=== PATIENT | female | born 1995 | race Caucasian/White ===

== ENCOUNTER → 2016-11-24 | Outpatient (CLI) | payer BC, OTHER ==
[~2016-11-24] MED LIST: CLRUNK
[2016-11-24 15:29] LABS: URINE APPEARANCE CLEAR (CLEAR); URINE BILIRUBIN NEG (NEG); URINE COLOR YELLOW; URINE EPITHELIAL CELL AUTO >30 /lpf (0-5); URINE NITRITE NEG (NEG); URINE SPECIFIC GRAVITY 1.027 (1.000-1.030); UROBILINOGEN NEG (NEG)
[2016-11-24 15:37] LABS: MANUAL MICROSCOPIC REQUIRED? NO; REVIEW REQ? NO
== END | disposition home or self-care (01) ==
LOC: C.LABSPEC 13:18
PROVIDERS: ATTEND Obstetrics & Gynecology
DX: Z34.01 Encounter for supervision of normal first pregnancy, first trimester (principal)

== ENCOUNTER → 2017-02-02 | Outpatient (CLI) | payer BC ==
[~2017-02-02] MED LIST changes: +MTR600X PO; +OXYC-57 PO; +PRENTAB26 PO
[2017-02-02 11:25] LABS: GTGD 50 Grams
== END | disposition home or self-care (01) ==
LOC: C.LAB1850 08:51
PROVIDERS: ATTEND Obstetrics & Gynecology
DX: Z34.01 Encounter for supervision of normal first pregnancy, first trimester (principal)

== ENCOUNTER → 2017-04-27 | Outpatient (CLI) | payer BC ==
[~2017-04-27] MED LIST changes: -MTR600X PO; -OXYC-57 PO; -PRENTAB26 PO
[2017-04-27 10:47] LABS: URINE APPEARANCE CLEAR (CLEAR); URINE BILIRUBIN NEG (NEG); URINE COLOR YELLOW; URINE EPITHELIAL CELL AUTO >30 /lpf (0-5); URINE NITRITE NEG (NEG); URINE PH 6.5 (4.5-7.5); URINE SPECIFIC GRAVITY 1.019 (1.000-1.030); UROBILINOGEN NEG (NEG)
[2017-04-27 10:48] LABS: MANUAL MICROSCOPIC REQUIRED? NO; REVIEW REQ? NO
[2017-04-27 11:57] LABS: HEMATOCRIT 36.2 % (37-47)
[2017-04-27 12:40] LABS: GTGD 50 Grams
== END | disposition home or self-care (01) ==
LOC: C.LAB1850 09:35
PROVIDERS: ATTEND Obstetrics & Gynecology
DX: Z34.03 Encounter for supervision of normal first pregnancy, third trimester (principal)

== ENCOUNTER → 2017-06-22 | Outpatient (CLI) | payer BC | END | disposition home or self-care (01) | LOC: C.LABSPEC 11:01 | PROVIDERS: ATTEND Obstetrics & Gynecology | DX: Z34.03 Encounter for supervision of normal first pregnancy, third trimester (principal) ==

== ENCOUNTER 2017-07-06 23:06 | Outpatient (CLI) | payer BC ==
[~2017-07-06] VITALS: Ht 165.1 cm; Wt 90.3 kg
[2017-07-06 23:45] VITALS: Ht 165.1 cm; Wt 90.3 kg
[2017-07-06] MEDS ORDERED: PRENTAB26 PO (23:45)
--- NOTE | 2017-07-12 14:28 | EDITING REQUIRED CODING QUERY ---
DIAGNOSIS NEEDED To promote full compliance with coding requirements relating to patient care, physician participation is requested in all cases of machine heel seat laster uncertainty. Please assist us with the question(s) below: Coding Question: The patient received care in labor and delivery on 07/06/17 as noted within the record. Please document the diagnosis that is being addressed by the medication/treatment. Provider Response: DIAGNOSIS: Check PROM WEEKS OF GESTATION: 38 Thank you for your assistance, Kelsi Muir - Sales Project Engineer
[2017-07-21] MEDS ORDERED: OXYC-57 PO (08:26)
[2017-07-21] MEDS ORDERED: MTR600X PO (08:26)
== END 2017-07-07 00:15 | disposition home or self-care (01) ==
LOC: C.LD 23:06 → C.OPB 23:06
PROVIDERS: ATTEND Obstetrics & Gynecology
DX: Z34.03 Encounter for supervision of normal first pregnancy, third trimester (principal); Z3A.38 38 weeks gestation of pregnancy

== ENCOUNTER → 2017-10-30 | Outpatient (CLI) | payer BC ==
[~2017-10-30] MED LIST changes: -CLRUNK; +MTR600X PO; +OXYC-57 PO; +PRENTAB26 PO
[2017-10-30 09:41] LABS: HEMATOCRIT 41.9 % (37-47); MEAN CELL VOLUME 89.9 fL (80-100); MEAN CORPUSCULAR HGB CONC 33.4 g/dl (32-36); MEAN PLATELET VOLUME 9.7 fL (7.4-10.4); PLATELET COUNT 269 K/uL (130-400); RED CELL DISTRIBUTION WIDTH SD 42.1 fL (36.4-46.3); WHITE BLOOD COUNT 7.14 K/uL (4.8-10.8)
== END ==
LOC: C.LAB1850 07:43
PROVIDERS: ATTEND Nurse Practitioner Family
DX: R51 Headache (principal)

== ENCOUNTER 2020-02-11 02:26 | Inpatient (IN) ==
[2020-02-11] MEDS ORDERED: LACTATED RINGER'S 1,000 ML IV SCH ×2 (03:15→08:31)
--- NOTE | 2020-02-11 05:28 | History & Physical Report ---
Date of Service February 11, 2020 Assessment & Plan (1) Previous delivery affecting , antepartum: We have observed some slight change in cervical dye location and her several hour observation here additionally the patient has become increasingly uncomfortable with contractions despite fluid hydration she is 38 weeks at this stage I think she is entering into labor and does not wish to thus will make arrangements for section Repeat section. The patient was counseled to the nature of the procedure including alternatives such as labor. Risks were discussed including bleeding infection injury to bowel bladder ureter vessels and even baby. The risks of internal organ injury were discussed as being higher with prior sections. Deep Vein Thrombosis, pulmonary embolus and breakdown of the incision discussed. Deep vein thrombosis pulmonary embolus hernia and failure of the incision to heal were discussed Patient verbalized understanding of this and was given ample time to ask questions History of Present Illness Primary Care Provider: Samreen Sanchez 38 weeks who had planned a repeat section after 1 prior C- section presents initially emile irregular now emile every 2 to 3 minutes with increasing intensity cervix is changed from 3 to close to 4 cm and she is having some bleeding patient does not wish to has otherwise been uncomplicated Allergies Allergy/AdvReac Type Severity Reaction Status Date / Time minocycline Allergy 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 gluten Allergy Unknown gi issues Verified 02/11/20 02:39 Home Medications Home Medications Medication Instructions Recorded Confirmed Type doxylamine succinate 25 mg tablet 25 mg PO Q6H PRN 07/15/19 02/11/20 History prenat.vits,brenna,[id number] 1 tab PO DAILY 07/15/19 02/11/20 History aspirin 81 mg tablet,delayed 81 mg PO DAILY 09/17/19 02/11/20 History release cetirizine [Zyrtec] 10 mg PO DAILY 01/24/20 02/11/20 History Patient History Medical History Endometriosis malpresentation (Resolved) Gestational hypertension w/o significant proteinuria in 3rd trimester (Resolved) Hx of varicella Ovarian cyst (Resolved) Ovarian cyst Pneumonia (Resolved) Post-term , 40-42 weeks of gestation (Resolved) Surgical History H/O breast augmentation (Resolved) 2012 H/O section 07/2017 [facility]- Breech H/O rhinoplasty [place] teeth removed Family History Mother History of ovarian cystectomy H/O endometritis Grandmother (Paternal) No problems noted. Grandmother (Maternal) Heart disease Hypertension Other Cancer Cholecystitis Diabetes Dyslipidemia Seizures Social History (Updated 07/15/19 @ 09:11 by Joan Queen) Preferred Language: Turkish Communication Ability: Effective Manager Sharepoint Required: No Beliefs That Will Affect Care: None marital status: marital status details: Colton Horn (29) [phone] Current Living Situation: Spouse Current Living Situation Comment: Lives with and daughter current occupational status: employed current occupation: [employer] Feels Safe at Home: Yes Safety Concerns: Feels Safe At This Time Smoking Status: Never smoker Hx Alcohol Use: No Hx Substance Use: No Physical Exam Constitutional: WD/WN, vitals as above Respiratory: normal respiratory effort, lungs clear to auscultation Cardiovascular: RRR, no murmur, no edema Genitourinary: Manual OB Exam: + cervical dilation 4 cm, + cervical effacement 50% and + station -2 OB Exam Monitor Tracing: + external FHT monitor used Results & Data Vital Signs (Past 12 Hours) Vital Signs Temp Pulse Resp BP 02/11/20 04:30 82 133/78 02/11/20 02:41 97.7 F 18 02/11/20 02:35 97.7 F 110 H 18 137/83 Coding Level of Care Code None Diagnoses Previous delivery affecting , antepartum O34.219
[2020-02-11 05:43] LABS: Basophils # (auto) 0.02 K/uL (0-0.2); Basophils % (auto) 0.2 %; Eosinophils # (auto) 0.05 K/uL (0-0.5); Eosinophils % (auto) 0.5 %; Hematocrit (blood only) 40.1 % (37-47); Hemoglobin 13.9 g/dL (12.0-16.0); Immature Granulocytes # (auto) 0.03 K/uL (0.00-0.02); Immature Granulocytes % (auto) 0.3 %; Lymphocytes # (auto) 2.76 K/uL (1.2-3.4); Lymphocytes % (auto) 25.1 %; Mean Corpuscular Hemoglobin 31.5 pg (25-34); Mean Corpuscular Volume 90.9 fL (80-100); Mean Platelet Volume 9.5 fL (7.4-10.4); Monocytes # (auto) 0.68 K/uL (0.11-0.59); Monocytes % (auto) 6.2 %; Neutrophils # (auto) 7.46 K/uL (1.4-6.5); Neutrophils % (auto) 67.7 %; Platelet Count 233 K/uL (130-400); RDW Coefficient of Variation 12.9 % (11.5-14.5); RDW Standard Deviation 42.8 fL (36.4-46.3); Red Blood Count 4.41 M/uL (4.2-5.4)
[2020-02-11 05:45] LABS: Mean Corpuscular Hgb Conc 34.7 g/dL (32-36)
--- NOTE | 2020-02-11 05:53 | Anesthesiology Consultation ---
Date of Service February 11, 2020 Assessment & Plan ASA ASA2E Proposed Anesthesia Anesthesia Type: MAC Spinal History Surgery Operation Date: 02/11/20 05:20 Proposed Procedures p Section in LD - Alvin. 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 Allergy Unknown gi issues Verified 02/11/20 02:39 Medications Home Medications Medication Instructions Recorded Confirmed Last Taken doxylamine succinate 25 mg tablet 25 mg PO Q6H PRN 07/15/19 02/11/20 02/10/20 23:30 prenat.vits,brenna,[id number] 1 tab PO DAILY 07/15/19 02/11/20 02/10/20 23:30 aspirin 81 mg tablet,delayed 81 mg PO DAILY 09/17/19 02/11/20 02/10/20 23:30 release cetirizine [Zyrtec] 10 mg PO DAILY 01/24/20 02/11/20 02/10/20 23:30 Active Medications Generic Name Dose Route Start Last Admin Trade Name Freq PRN Reason Stop Dose Admin Lactated Ringer's 1,000 mls @ 500 mls/hr 02/11/20 03:15 02/11/20 03:23 Lr IV 03/12/20 03:14 500 mls/hr .Q2H PABLO Administration Past Medical History Medical History Endometriosis malpresentation (Resolved) Gestational hypertension w/o significant proteinuria in 3rd trimester (Resolved) Hx of varicella Ovarian cyst (Resolved) Ovarian cyst Pneumonia (Resolved) Post-term , 40-42 weeks of gestation (Resolved) Past Family History Family History Mother History of ovarian cystectomy H/O endometritis Grandmother (Paternal) No problems noted. Grandmother (Maternal) Heart disease Hypertension Other Cancer Cholecystitis Diabetes Dyslipidemia Seizures Past Surgical History Surgical History H/O breast augmentation (Resolved) 2012 H/O section 07/2017 [facility]- Breech H/O rhinoplasty [place] teeth removed Social History Smoking Status: Never smoker Hx Alcohol Use: No Hx Substance Use: No Physical Exam Vital Signs Last Vital Signs Temp 36.5 C 02/11/20 02:41 Pulse 82 02/11/20 04:30 Resp 18 02/11/20 02:41 BP 133/78 02/11/20 04:30 Testing Laboratory Results 02/11/20 05:30
--- NOTE | 2020-02-11 05:54 | Anesthesiology Consultation ---
Date of Service February 11, 2020 Assessment & Plan Chart Review Chart Review: Acceptable Risk for Surgery Consults Requested none History Surgery Operation Date: 02/11/20 05:20 Proposed Procedures p Section in LD - Alvin. 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 Allergy Unknown gi issues Verified 02/11/20 02:39 Medications Home Medications Medication Instructions Recorded Confirmed Last Taken doxylamine succinate 25 mg tablet 25 mg PO Q6H PRN 07/15/19 02/11/20 02/10/20 23:30 prenat.vits,brenna,gnf-uzsl-[id number] 1 tab PO DAILY 07/15/19 02/11/20 02/10/20 23:30 aspirin 81 mg tablet,delayed 81 mg PO DAILY 09/17/19 02/11/20 02/10/20 23:30 release cetirizine [Zyrtec] 10 mg PO DAILY 01/24/20 02/11/20 02/10/20 23:30 Active Medications Generic Name Dose Route Start Last Admin Trade Name Freq PRN Reason Stop Dose Admin Lactated Ringer's 1,000 mls @ 500 mls/hr 02/11/20 03:15 02/11/20 03:23 Lr IV 03/12/20 03:14 500 mls/hr .Q2H PABLO Administration Past Medical History Medical History Endometriosis malpresentation (Resolved) Gestational hypertension w/o significant proteinuria in 3rd trimester (Resolved) Hx of varicella Ovarian cyst (Resolved) Ovarian cyst Pneumonia (Resolved) Post-term , 40-42 weeks of gestation (Resolved) Past Family History Family History Mother History of ovarian cystectomy H/O endometritis Grandmother (Paternal) No problems noted. Grandmother (Maternal) Heart disease Hypertension Other Cancer Cholecystitis Diabetes Dyslipidemia Seizures Past Surgical History Surgical History H/O breast augmentation (Resolved) 2012 H/O section 07/2017 [facility]- Breech H/O rhinoplasty [place] teeth removed Social History Smoking Status: Never smoker Hx Alcohol Use: No Hx Substance Use: No Physical Exam Vital Signs Last Vital Signs Temp 36.5 C 02/11/20 02:41 Pulse 82 02/11/20 04:30 Resp 18 02/11/20 02:41 BP 133/78 02/11/20 04:30 Testing Laboratory Results 02/11/20 05:30
[2020-02-11] MEDS ORDERED: PROMETHAZINE HCL 25 MG in SODIUM CHLORIDE 0.9% 50 ML IV PRN ×2 (05:57→23:58)
[2020-02-11] MEDS ORDERED: NALOXONE HCL 1 MG in SODIUM CHLORIDE 0.9% 1000ML 1,000 ML IV PRN (05:57)
[2020-02-11] MEDS ORDERED: NALOXONE HCL 0.4 MG/1 ML VIAL/CARP IV PRN (05:57)
[2020-02-11] MEDS ORDERED: MoRPHine SULFATE PF 1 MG/ML 10 ML AMP/VIAL INT SPINAL ONE (05:57)
[2020-02-11] MEDS ORDERED: HYDROmorphone INJ 0.5 MG/0.5 ML SYR IV PRN (05:57)
[2020-02-11] MEDS ORDERED: ePHEDrine sulfate 50 MG/ML AMP IV PRN (05:57)
[2020-02-11] MEDS ORDERED: METOCLOPRAMIDE HCL 20 MG in SODIUM CHLORIDE 0.9% 50 ML IV PRN (05:57)
[2020-02-11] MEDS ORDERED: NALOXONE HCL 0.08 MG in SYRINGE 1.8 ML IV PRN (05:57)
[2020-02-11] MEDS ORDERED: NALBUPHINE HCL INJ 10 MG/ML AMP IV PRN (05:57)
[2020-02-11] MEDS ORDERED: ONDANSETRON INJ 2 MG/ML 2 ML VIAL IV PRN ×2 (05:57→23:58)
[2020-02-11] MEDS ORDERED: MEPERIDINE HCL 25 MG/ML CARP/VIAL IV PRN (05:57)
[2020-02-11] MEDS ORDERED: DiphenhydrAMINE HCL 50 MG/ML VIAL IV PRN ×3 (05:57→23:58)
[2020-02-11] MEDS ORDERED: MoRPHine SULFATE 2 MG/ML CARP IV PRN (05:57)
[2020-02-11] MEDS ORDERED: LACTATED RINGER'S 500 ML IV PRN (05:57)
[2020-02-11] MEDS ORDERED: CEFAZOLIN 2000MG 2,000 MG/15 ML SYR IV SCH (06:00)
[2020-02-11] MEDS ORDERED: SODIUM CHLORIDE 0.9% 1000ML 1,000 ML IV SCH (06:00)
[2020-02-11] MEDS ORDERED: CITRIC ACID/SODIUM CITRATE 15 ML UDC PO SCH (06:00)
[2020-02-11] MEDS ORDERED: DC INTRASPINAL MORPHINE SCH (06:00)
[2020-02-11] MEDS ORDERED: NO NARCOTICS OR SEDATIVES SCH (06:00)
[2020-02-11] MEDS ORDERED: MoRPHine SULFATE PF 1 MG/ML 10 ML AMP/VIAL ONE (06:09)
[2020-02-11] MEDS ORDERED: OXYTOCIN 10 UNITS/ML VIAL ONE ×3 (06:46→06:48)
--- NOTE | 2020-02-11 07:04 | Operative Report ---
PG Post Operative Report Pre & Post Diagnosis Previous C/S, labor Operation Date: 02/11/20 05:20 <No data on this case meets the specified criteria> I identified the patient and participated in the time-out.: Yes Procedure Operation Date: 02/11/20 05:20 Actual Procedures p Section in LD(Not Applicable) - Brennan Loya MD, FACOG Surgeon Brennan Loya MD, FACOG Manager [place] Dr. Gavin Estimated Blood Loss 600 Findings Consistent with Post-Op Diagnosis Specimens Cord gases, blood Description of Procedure Regional anesthetic was given by anesthesia patient had a Burt catheter inserted by nursing patient was prepped and draped in supine position with a leftward tilt preoperative antibiotics were given timeout performed Pickups with teeth were used to test the skin site and it was found adequate for incision scalpel used to make a Pfannenstiel incision cutting down through subcutaneous fat through the fascia fascia was then dissected laterally with the curved Gunderson's fascia was released superiorly and inferiorly from the rectus muscles with the curved Gunderson scissors, rectus muscle split peritoneal cavity entered in a superior location. Opening enlarged to allow exposure bladder retractor placed Metzenbaums used to dissect away the bladder flap low segment transverse incision made on the uterus with scalpel, note uterus was fairly thin. entry was done bluntly with the copper flotation operator's finger hysterotomy incision extended with the copper flotation operator's finger in the usual fashion baby was delivered then by flexion of the head and pressure from the housekeeping assistant on the abdomen mouth and then nares were suctioned baby was then delivered fully without difficulty without excessive force live vigorous cord clamped and cut cord gases obtained cord blood obtained placenta removed manually within ensured all placenta removed with a moist lap sponge uterus exteriorized IV Pitocin had been started by anesthesia and uterine tone improved. The uterus was closed in 2 layers first layer and 0 Monocryl running locked second layer 0 Monocryl nonlocked after generous irrigation and suction of the cul-de-sac and bladder flap regions hemostasis was excellent uterus was placed back in the peritoneal cavity and hemostasis was excellent rectus muscles were inspected and found to be dry fascia closed with 0 Vicryl subcutaneous fat closed with 3-0 Vicryl prior to this subcutaneous fat was irrigated skin closed with 4-0 subcuticular Monocryl incision Steri-Stripped urine was clear at the end of the procedure I attest to the content of the Intraoperative Record and any orders documented therein. Any exceptions are noted below.
[2020-02-11 07:42] LABS: Base Excess Cord Arterial Bld -2.2 mEq/L (-9-1.8); CO2 Cord Arterial Blood 49 mmHg (39.1-73.5); HCO3 Cord Arterial Blood 25 mmol/L (19.7-28.5); PO2 Cord Arterial Blood 25 mmHg (4.1-31.7); pH Cord Arterial Blood 7.32 (7.1-7.38)
[2020-02-11 07:46] LABS: Base Excess Cord Venous Blood -2.2 mEq/L (-7.7-1.9); Cord Venous Blood HCO3 24 mmol/L (18.4-26.8); Cord Venous Blood PCO2 47 mmHg (30.4-57.2); Cord Venous Blood PO2 24 mmHg (14.1-43.3); Cord Venous Blood pH 7.33 (7.20-7.44)
[2020-02-11 07:55] LABS: Oxygen Sat Cord Arterial Blood < 60.0 % (<60)
[2020-02-11 07:56] LABS: O2 Saturation Cord Venous Bld < 60.0 % (<68)
--- NOTE | 2020-02-11 07:57 | Anesthesiology Progress Note ---
Date of Service February 11, 2020 Anesthesia Post Procedure Vital Signs Vital Signs: Temp Pulse Resp BP Pulse Ox 02/11/20 07:56 79 98 02/11/20 07:53 74 125/72 02/11/20 07:51 73 98 02/11/20 07:46 71 99 02/11/20 07:44 77 121/67 02/11/20 07:41 75 99 02/11/20 07:40 20 02/11/20 07:36 73 98 02/11/20 07:33 76 127/61 02/11/20 07:31 81 99 02/11/20 07:30 18 02/11/20 07:26 77 99 02/11/20 07:23 86 129/60 02/11/20 07:21 84 99 02/11/20 07:20 18 02/11/20 07:16 90 99 02/11/20 07:13 87 126/63 02/11/20 07:11 89 99 02/11/20 07:10 36.6 C 20 02/11/20 04:30 82 133/78 02/11/20 02:41 36.5 C 18 02/11/20 02:35 36.5 C 110 H 18 137/83 Transfer of Care Handoff Completed per policy Notes Mental Status: alert / awake / arousable and participated in evaluation Patient Amnestic to Procedure: Yes Nausea / Vomiting: adequately controlled Pain: adequately controlled Airway Patency, RR, SpO2: stable & adequate BP & HR: stable & adequate Hydration State: stable & adequate Anesthetic Complications: no major complications apparent and Pt Satisfied with anesthetic care
[2020-02-11] MEDS ORDERED: MAGNESIUM HYDROXIDE SUSP 30 ML UDC PO PRN (08:31)
[2020-02-11] MEDS ORDERED: HYDROCORTISONE ACETATE 25 MG SUPP PR PRN (08:31)
[2020-02-11] MEDS ORDERED: DIPHTHERIA/TETANUS/PERTUSSIS 0.5 ML SYR/VIAL IM ONE (08:31)
[2020-02-11] MEDS ORDERED: SENNA 8.6 MG TAB PO PRN (08:31)
[2020-02-11] MEDS ORDERED: SUPERCREAM 0.870% 15 GM JAR EXT PRN (08:31)
[2020-02-11] MEDS ORDERED: BENZOCAINE 20% AER SPR 82.5 GM CAN EXT PRN (08:31)
[2020-02-11] MEDS: OXYTOCIN 20 UNITS in LACTATED RINGER'S 1,000 ML IV SCH ×2 (09:39→17:22)
[2020-02-11] MEDS: SIMETHICONE 80 MG CHEW PO SCH ×4 (09:43→21:27)
[2020-02-11] MEDS: DOCUSATE SODIUM 100 MG CAP PO SCH ×2 (09:43→21:27)
[2020-02-11] MEDS: PRENATAL VITAMIN 1 TAB PO SCH (09:43)
[2020-02-11] MEDS: FERROUS SULFATE 325 MG TAB PO SCH (09:43)
[2020-02-11] MEDS: KETOROLAC 30 MG/ML VIAL IV PRN ×2 (17:51→23:23)
[2020-02-12] MEDS: OXYCODONE/ACETAMINOPHEN 5mg/325mg TAB PO PRN ×5 (03:31→20:46)
[2020-02-12 06:46] LABS: Basophils # (auto) 0.03 K/uL (0-0.2); Basophils % (auto) 0.3 %; Eosinophils # (auto) 0.23 K/uL (0-0.5); Eosinophils % (auto) 2.3 %; Hematocrit (blood only) 35.4 % (37-47); Hemoglobin 12.1 g/dL (12.0-16.0); Immature Granulocytes # (auto) 0.02 K/uL (0.00-0.02); Immature Granulocytes % (auto) 0.2 %; Lymphocytes # (auto) 3.12 K/uL (1.2-3.4); Lymphocytes % (auto) 31.4 %; Mean Corpuscular Hemoglobin 31.6 pg (25-34); Mean Corpuscular Hgb Conc 34.2 g/dL (32-36); Mean Corpuscular Volume 92.4 fL (80-100); Monocytes # (auto) 0.75 K/uL (0.11-0.59); Monocytes % (auto) 7.5 %; Neutrophils # (auto) 5.79 K/uL (1.4-6.5); Neutrophils % (auto) 58.3 %; Platelet Count 191 K/uL (130-400); RDW Coefficient of Variation 13.1 % (11.5-14.5); RDW Standard Deviation 43.7 fL (36.4-46.3); Red Blood Count 3.83 M/uL (4.2-5.4); White Blood Count 9.94 K/uL (4.8-10.8)
--- NOTE | 2020-02-12 06:50 | Obstetrical Progress Note ---
Date of Service <Jackie Gavin DO - Last Filed: 02/12/20 08:00> February 12, 2020 Assessment & Plan <Jackie Gavin DO - Last Filed: 02/12/20 08:00> (1) Encounter for care and examination after delivery: - doing well and without complaints today. Vitals and H/H stable. - will continue routine care. Subjective <Jackie Gavin - Last Filed: 02/12/20 08:00> 24 yo F ; POD # 1; doing well this AM; minimal abdominal cramping/pain; voiding well, passing gas but no BM; tolerating meals overnight, able to ambulate some within the room. Review of Systems Constitutional: denies fever, chills, sweats, headache Respiratory: denies SOB, difficulty breathing Cardiac: denies CP, chest palpitations, chest pressure Breast: denies breast pain : denies dysuria Physical Exam <Jackie Gavin - Last Filed: 02/12/20 08:00> General: patient is alert and oriented, in NAD Cardiac: +S1/S2, no murmurs rubs or gallops Respiratory: lungs CTA b/l, anteriorly and posteriorly, no wheezes rales or rhonchi, no increased work of breathing, symmetric chest rise, no respiratory distress Abdomen: soft, NT, +bowel sounds Uterus: uterine fundus firm, palpable below the level of the umbilicus. Incision intact, non-tender, non-erythematous, no weeping from incision site Lower Extremities: no LE edema or swelling, no deep calf pain, Maribell's sign negative b/l Results & Data <Jackie Gavin Jama Last Filed: 02/12/20 08:00> Vital Signs (Past 12 Hours) Vital Signs Temp Pulse Resp BP Pulse Ox 02/12/20 03:30 36.8 C 86 18 128/77 98 02/11/20 23:15 36.7 C 69 18 119/73 97 02/11/20 22:45 18 97 02/11/20 21:52 20 96 02/11/20 21:00 20 96 02/11/20 19:45 20 95 02/11/20 19:00 20 96 <Sid Disla MD - Last Filed: 02/12/20 08:23> Co-Signing Physician Notes Patient seen and evaluated and agree with the above findings and plan. Routine care Resident Activity Tracking <Jackie Gavin, DO - Last Filed: 02/12/20 08:00> Resident Involvement: Resident Care Provided Care Provided: OB Delivery
[2020-02-12] MEDS: FERROUS SULFATE 325 MG TAB PO SCH (07:26)
[2020-02-12] MEDS: DOCUSATE SODIUM 100 MG CAP PO SCH ×2 (07:27→19:53)
[2020-02-12] MEDS: SIMETHICONE 80 MG CHEW PO SCH ×4 (07:27→20:46)
[2020-02-12] MEDS: PRENATAL VITAMIN 1 TAB PO SCH (07:27)
[2020-02-12] MEDS: IBUPROFEN 600 MG TAB PO PRN ×4 (07:28→20:47)
--- NOTE | 2020-02-12 07:58 | Anesthesiology Progress Note ---
Date of Service February 12, 2020 Anesthesia Post Procedure Vital Signs Vital Signs: Temp Pulse Pulse Resp BP BP Pulse Ox 02/12/20 03:30 36.8 C 86 18 128/77 98 02/11/20 23:15 36.7 C 69 18 119/73 97 02/11/20 22:45 18 97 02/11/20 21:52 20 96 02/11/20 21:00 20 96 02/11/20 19:45 20 95 02/11/20 19:00 20 96 02/11/20 17:56 20 96 02/11/20 17:00 20 95 02/11/20 16:00 36.7 C 69 20 116/70 95 02/11/20 14:05 18 98 02/11/20 13:23 18 98 02/11/20 12:33 36.6 C 71 18 116/71 98 02/11/20 11:43 16 96 02/11/20 11:05 18 98 02/11/20 10:13 18 97 02/11/20 09:05 36.7 C 82 18 128/78 98 02/11/20 08:56 78 98 02/11/20 08:53 77 121/70 02/11/20 08:51 83 97 02/11/20 08:46 79 97 02/11/20 08:43 77 135/83 02/11/20 08:41 84 98 02/11/20 08:36 81 98 02/11/20 08:33 85 136/87 02/11/20 08:31 82 97 02/11/20 08:26 87 98 02/11/20 08:23 76 127/78 02/11/20 08:21 84 99 02/11/20 08:16 82 97 02/11/20 08:13 71 131/75 02/11/20 08:11 89 98 02/11/20 08:10 20 02/11/20 08:06 76 98 02/11/20 08:03 69 125/70 02/11/20 08:01 71 99 02/11/20 08:00 20 Pain Intensity Abdomen: Pain Intensity: 3 Transfer of Care Handoff Completed per policy Notes Mental Status: alert / awake / arousable and participated in evaluation Nausea / Vomiting: adequately controlled Pain: adequately controlled Airway Patency, RR, SpO2: stable & adequate BP & HR: stable & adequate Hydration State: stable & adequate Neuraxial Anesthesia: was administered and sensory block resolved Anesthetic Complications: no major complications apparent and Pt Satisfied with anesthetic care Notes: Patient denies headache this morning. Has been up walking without weakness or residual numbness. Patient encouraged to contact anesthesia for any concerns or new headache
[2020-02-12] MEDS ORDERED: bisacodyL 5 MG TABEC PO SCH (20:00)
[2020-02-13] MEDS: OXYCODONE/ACETAMINOPHEN 5mg/325mg TAB PO PRN ×2 (03:48→08:07)
[2020-02-13] MEDS: IBUPROFEN 600 MG TAB PO PRN ×2 (03:48→08:08)
--- NOTE | 2020-02-13 06:11 | Obstetrical Progress Note ---
Date of Service <Jackie Gavin DO - Last Filed: 02/13/20 06:44> February 13, 2020 Assessment & Plan <Jackie Gavin DO - Last Filed: 02/13/20 06:44> (1) Encounter for care and examination after delivery: - doing well and without complaints today. Vitals and H/H stable. - desires discharge. - went over d/c instructions and answered all patient questions. Subjective <Jackie Gavin DO - Last Filed: 02/13/20 06:44> 24 yo F ; POD # 2; doing well this AM; minimal abdominal cramping/pain; voiding well, passing gas but no BM; tolerating meals overnight, able to ambulate some within the room. Review of Systems Constitutional: denies fever, chills, sweats, headache Respiratory: denies SOB, difficulty breathing Cardiac: denies CP, chest palpitations, chest pressure Breast: denies breast pain : denies dysuria Physical Exam <Jackie Gavin DO - Last Filed: 02/13/20 06:44> General: patient is alert and oriented, in NAD Cardiac: +S1/S2, no murmurs rubs or gallops Respiratory: lungs CTA b/l, anteriorly and posteriorly, no wheezes rales or rhonchi, no increased work of breathing, symmetric chest rise, no respiratory distress Abdomen: soft, NT, +bowel sounds Uterus: uterine fundus firm, palpable 2cm below the level of the umbilicus. Incision intact, non-tender, non-erythematous, no weeping from incision site Lower Extremities: no LE edema or swelling, no deep calf pain, Maribell's sign negative b/l Results & Data <Jackie Gavin DO - Last Filed: 02/13/20 06:44> Vital Signs (Past 12 Hours) Vital Signs Temp Pulse Resp BP 02/12/20 23:20 36.7 C 80 16 121/71 <Lula Diane MD, FACOG - Last Filed: 02/13/20 07:14> Co-Signing Physician Notes Resident Physician Supervision Note: I was present with Dr. Gavin during the history and exam. I discussed the case with the resident and agree with the findings and plan as documented in the note. Any exceptions or clarifications are listed here: doing well post op repeat c/s. voiding, ambulating and eating without problem, pain controlled with oral meds, ff 2down nt, incision c/d/i with steris, nt calves. instructions reviewed. will send script for percocet, checked on pa pdmp and no issues. f/u 6wks and instructions reviewed. rhpos, ri, bottle. Documented By: Lula Diane MD, FACOG Resident Activity Tracking <Jackie Gavin, - Last Filed: 02/13/20 06:44> Resident Involvement: Resident Care Provided Care Provided: OB Delivery
[2020-02-13 06:53] LABS: Hemoglobin 12.1 g/dL (12.0-16.0)
[2020-02-13] MEDS ORDERED: bisacodyL 10 MG SUPP PR PRN (07:04)
[2020-02-13] MEDS: PRENATAL VITAMIN 1 TAB PO SCH (08:07)
[2020-02-13] MEDS: DOCUSATE SODIUM 100 MG CAP PO SCH (08:07)
[2020-02-13] MEDS: FERROUS SULFATE 325 MG TAB PO SCH (08:07)
[2020-02-13] MEDS: SIMETHICONE 80 MG CHEW PO SCH (08:07)
--- NOTE | 2020-02-20 08:17 | Discharge Summary ---
Date of Service February 20, 2020 Admission HPI Per Admitting Provider 38 weeks who had planned a repeat section after 1 prior C- section presents initially emile irregular now emile every 2 to 3 minutes with increasing intensity cervix is changed from 3 to close to 4 cm and she is having some bleeding patient does not wish to has otherwise been uncomplicated Admission Exam (Per Admitting) Constitutional WD/WN, vitals as above Respiratory normal respiratory effort, lungs clear to auscultation Cardiovascular RRR, no murmur, no edema Genitourinary Manual OB Exam: + cervical dilation + 4 cm, + cervical effacement + 50% and + station + -2 OB Exam Monitor Tracing: + external FHT monitor used Discharge Data Consultations 02/11/20 05:23 Consult Anesthesiology Stat Procedures Performed Operation Date: 02/11/20 05:20 Actual Procedures p Section in LD(Not Applicable) - Brennan Loya MD, FACOG Hospital Course (1) Previous delivery affecting , antepartum: Postoperative from section patient meets discharge criteria as she is ambulating well tolerating an oral diet has minimal bleeding and no extremity pain. Discharge instructions were reviewed and prescriptions were sent to her pharmacy of choice patient advised to call with any concerns and follow-up in the office discussed Coding Level of Care Code None Diagnoses Previous delivery affecting , antepartum O34.219
== END 2020-02-13 11:50 | disposition home or self-care (01) | DRG 788 ==
LOC: OPB 02:26 → 4S1 02:30 → 4S2 09:45

== ENCOUNTER 2023-06-12 02:36 | Inpatient (IN) ==
[2023-06-12] MEDS ORDERED: ceFAZolin 2000MG 2,000 MG/15 ML SYR IV STA (03:42)
[2023-06-12] MEDS ORDERED: CITRIC ACID/SODIUM CITRATE 15 ML UDC PO STA (03:42)
[2023-06-12] MEDS ORDERED: LACTATED RINGER'S 1,000 ML IV STA (03:43)
--- NOTE | 2023-06-12 03:45 | History & Physical Report ---
Date of Service June 12, 2023 Assessment & Plan (1) Previous delivery affecting , antepartum: (2) Breech presentation: Plan IUP at 38 weeks with prior C/S X 2 who presents with regular contractions and breech presentation. will proceed with repeat C/S now- no tubal the procedure and it's risks reviewed with the patient and all questions answered to her satisfaction. History of Present Illness Primary Care Provider: NO PCP Patient is a 28 yo female [facility] who presents with regular contractions every 4-8 minutes over the last several hours. no SPROM. GBS - negative. complicated by breech presentation and prior section X 2. 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 gluten Allergy Intermediate Gastrointestinal Verified 06/06/23 09:45 Upset Home Medications Medication Instructions Recorded Confirmed Type cetirizine 10 mg capsule (Zyrtec) 10 mg PO DAILY 01/24/20 06/12/23 History montelukast 10 mg tablet 10 mg PO DAILY 01/20/22 06/06/23 History (Singulair) clindamycin phosphate 1 % lotion 1 applic topical DAILY #60 mL 08/10/22 06/12/23 Rx prenat.vits,brenna,rfp-djnx-sidnr PO DAILY 08/10/22 06/06/23 History ascorbic acid-collagen PO 11/11/22 06/06/23 History Patient History Medical History (Updated 06/12/23 @ 03:45 by Mable Ricardo MD, FACOG) Endometriosis malpresentation Gestational hypertension w/o significant proteinuria in 3rd trimester Hx of varicella Ovarian cyst Ovarian cyst Pneumonia Post-term , 40-42 weeks of gestation Surgical History H/O breast augmentation 2012 H/O section 07/2017 [facility]- Breech H/O rhinoplasty [place] teeth removed Family History Mother History of ovarian cystectomy H/O endometritis Grandmother (Paternal) No problems noted. Grandmother (Maternal) Heart disease Hypertension Other Cancer Cholecystitis Diabetes Dyslipidemia Seizures Social History Smoking Status: Never smoker Second Hand Exposure: No; Do You Dip or Chew Tobacco: No; Hx Alcohol Use: No Hx Substance Use: No Preferred Language: Belarusian Communication Ability: Effective Industrial Maintenance Tech Required: No Beliefs That Will Affect Care: None marital status: marital status details: Colton Horn (32) [phone] Current Living Situation: Spouse Current Living Situation Comment: Lives with and children, 2 cats, spouse to change litter. current occupational status: employed current occupation: cardiac technologist @ [employer] Other Information That Helps Us Care for You: No Feels Safe at Home: Yes Assistive Devices: Glasses Review of Systems All systems reviewed & are unremarkable except as noted in HPI & below Physical Exam Constitutional: WD/WN, vitals as above Respiratory: normal respiratory effort, lungs clear to auscultation Cardiovascular: RRR, no murmur, no edema Psychiatric: A+Ox3, euthymic affect Genitourinary: OB Exam Abdomen: + breech and + regular contractions (3-4 minutes) Manual OB Exam: + cervical dilation 2 cm (2-3 cm), + cervical effacement 80% and + station high (-3) OB Exam Monitor Tracing: + external FHT monitor used, + external uterine monitor used, + category I and + normal FHT variability Results & Data Vital Signs (Past 12 Hours) Vital Signs Temp Pulse Resp BP 06/12/23 02:51 102 H 139/81 06/12/23 02:47 98.6 F 20 Coding Level of Care Code None Diagnoses Previous delivery affecting , antepartum O34.219 Breech presentation O32.1XX0
[2023-06-12 04:06] LABS: Basophils # (auto) 0.02 K/uL (0.00-0.20); Basophils % (auto) 0.3 %; Eosinophils % (auto) 1.3 %; Hematocrit (blood only) 41.2 % (37.0-47.0); Immature Granulocytes # (auto) 0.02 K/uL (0.01-0.20); Immature Granulocytes % (auto) 0.3 %; Lymphocytes # (auto) 2.06 K/uL (1.20-3.40); Lymphocytes % (auto) 26.1 %; Mean Corpuscular Hemoglobin 32.9 pg (25.0-34.0); Mean Corpuscular Hgb Conc 36.4 g/dL (32.0-36.0); Mean Corpuscular Volume 90.4 fL (80.0-100.0); Mean Platelet Volume 9.3 fL (9.4-12.4); Monocytes # (auto) 0.66 K/uL (0.11-0.59); Monocytes % (auto) 8.4 %; Neutrophils # (auto) 5.03 K/uL (1.40-6.50); Neutrophils % (auto) 63.6 %; Platelet Count 168 K/uL (130-400); RDW Coefficient of Variation 12.9 % (11.5-14.5); RDW Standard Deviation 41.9 fL (36.4-46.3); Red Blood Count 4.56 M/uL (4.20-5.40); White Blood Count 7.89 K/ul (4.8-10.8)
--- NOTE | 2023-06-12 04:42 | Anesthesiology Consultation ---
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 Intermediate Gastrointestinal Verified 06/06/23 09:45 Upset Medications Home Medications Medication Instructions Recorded Confirmed Last Taken cetirizine 10 mg capsule (Zyrtec) 10 mg PO DAILY 01/24/20 06/12/23 04/08/22 montelukast 10 mg tablet 10 mg PO DAILY 01/20/22 06/06/23 04/08/22 (Singulair) clindamycin phosphate 1 % lotion 1 applic topical DAILY #60 mL 08/10/22 06/12/23 Unknown prenat.vits,brenna,[id number] PO DAILY 08/10/22 06/06/23 Unknown ascorbic acid-collagen PO 11/11/22 06/06/23 Unknown Active Medications Generic Name Dose Route Start Last Admin Trade Name Freq PRN Reason Stop Dose Admin Lactated Ringer's 1,000 mls @ 999 mls/hr 06/12/23 03:43 06/12/23 03:45 Lr IV 06/12/23 04:43 999 mls/hr .Q1H1M STA Administration Past Medical History Medical History (Updated 06/12/23 @ 04:41 by Royce Lara MD) Encounter for pre-operative examination Endometriosis malpresentation Gestational hypertension w/o significant proteinuria in 3rd trimester Hx of varicella Ovarian cyst Ovarian cyst Pneumonia Post-term , 40-42 weeks of gestation Past Family History Family History Mother History of ovarian cystectomy H/O endometritis Grandmother (Paternal) No problems noted. Grandmother (Maternal) Heart disease Hypertension Other Cancer Cholecystitis Diabetes Dyslipidemia Seizures Past Surgical History Surgical History H/O breast augmentation 2012 H/O section 07/2017 LF- Breech H/O rhinoplasty [place] teeth removed Social History Smoking Status: Never smoker Do You Dip or Chew Tobacco: No Hx Alcohol Use: No Hx Substance Use: No substance use type: does not use Physical Exam Vital Signs Last Vital Signs Temp 37.0 C 06/12/23 02:47 Pulse 102 H 06/12/23 02:51 Resp 20 06/12/23 02:47 BP 139/81 06/12/23 02:51 Testing Laboratory Results 06/12/23 03:50
[2023-06-12] MEDS ORDERED: OXYTOCIN 10 UNITS/ML VIAL ONE (04:51)
[2023-06-12] MEDS ORDERED: MoRPHine SULFATE PF 1 MG/ML 10 ML AMP/VIAL ONE (04:51)
[2023-06-12] MEDS ORDERED: fentaNYL citrate PF 100 MCG/2 ML VIAL ONE (04:51)
[2023-06-12] MEDS ORDERED: PHENYLEPHRINE 100MCG/ML 5ML SYR ONE (04:51)
[2023-06-12] MEDS ORDERED: ONDANSETRON INJ 2 MG/ML 2 ML VIAL ONE (04:51)
[2023-06-12] MEDS ORDERED: NALOXONE HCL 0.4 MG/1 ML VIAL/CARP IV PRN (06:14)
[2023-06-12] MEDS ORDERED: MoRPHine SULFATE PF 1 MG/ML 10 ML AMP/VIAL INT SPINAL ONE (06:14)
[2023-06-12] MEDS ORDERED: ePHEDrine sulfate 50 MG/ML AMP IV PRN (06:14)
[2023-06-12] MEDS ORDERED: LACTATED RINGER'S 500 ML IV PRN (06:14)
[2023-06-12] MEDS ORDERED: NALOXONE HCL 0.08 MG in SYRINGE 1.8 ML IV PRN (06:14)
[2023-06-12] MEDS ORDERED: NALBUPHINE HCL INJ 10 MG/ML AMP IV PRN (06:14)
[2023-06-12] MEDS ORDERED: NALOXONE HCL 1 MG in SODIUM CHLORIDE 0.9% 1,000 ML IV PRN (06:14)
[2023-06-12] MEDS ORDERED: SODIUM CHLORIDE 0.9% 1,000 ML IV SCH (06:15)
[2023-06-12] MEDS ORDERED: NO NARCOTICS OR SEDATIVES SCH (06:15)
[2023-06-12] MEDS ORDERED: DC INTRASPINAL MORPHINE SCH (06:15)
[2023-06-12] MEDS ORDERED: HYDROmorphone INJ 0.5 MG/0.5 ML SYR IV PRN (07:04)
[2023-06-12] MEDS ORDERED: PROMETHAZINE HCL 6.25 MG in SODIUM CHLORIDE 0.9% 50 ML IV PRN (07:04)
--- NOTE | 2023-06-12 07:11 | Post Operative Brief Note ---
PG Immediate Post Op with CF Date of Surgery June 12, 2023 Pre & Post Diagnosis Operation Date: 06/12/23 04:15 Pre-Op Diagnosis: 1.IUP at 38 weeks 2.Previous c/section X 2 3. Labor 4. Breech Presentation Post-Op Diagnosis: same I identified the patient and participated in the time-out.: Yes Procedure Operation Date: 06/12/23 04:15 Actual Procedures p Section in LD with the of a live female child at 0630. - Mable Ricardo MD, FACOG Surgeon Mable Ricardo MD, FACOG Gas Usage Meter Clerk Anali Rudolph MD Estimated Blood Loss 450 Findings Consistent with Post-Op Diagnosis gravid uterus with very thin lower uterine segment, bilateral normal tubes and ovaries Specimens Specimen Description: A: Placenta- hold B: Cord Blood Drains Hernandez Catheter (hernandez catheter placed after spinal; clear yellow urine noted upon insertion. clear urine at the end of the case.) Anesthesia Type Spinal Complications none Disposition Accompanied Patient To Recovery: Yes
--- NOTE | 2023-06-12 07:21 | Anesthesiology Progress Note ---
Date of Service June 12, 2023 Anesthesia Post Procedure Vital Signs Vital Signs: Temp Pulse Resp BP Pulse Ox 06/12/23 07:17 95 H 119/65 97 06/12/23 02:51 102 H 139/81 06/12/23 02:47 37.0 C 20 Transfer of Care Handoff Completed per policy Notes Mental Status: alert / awake / arousable and participated in evaluation Patient Amnestic to Procedure: No Nausea / Vomiting: adequately controlled Pain: adequately controlled Airway Patency, RR, SpO2: stable & adequate BP & HR: stable & adequate Hydration State: stable & adequate Neuraxial Anesthesia: was administered and sensory block is resolving Anesthetic Complications: no major complications apparent and Pt Satisfied with anesthetic care
[2023-06-12] MEDS ORDERED: LACTATED RINGER'S 1,000 ML IV SCH (07:35)
[2023-06-12] MEDS ORDERED: BENZOCAINE 20% SPRY 85 APPLN/85 GM CAN EXT PRN (07:35)
[2023-06-12] MEDS ORDERED: KETOROLAC 30 MG/ML VIAL IV PRN (07:35)
[2023-06-12] MEDS ORDERED: HYDROCORTISONE ACETATE 25 MG SUPP PR PRN (07:35)
[2023-06-12] MEDS ORDERED: MAGNESIUM HYDROXIDE SUSP 30 ML UDC PO PRN (07:35)
[2023-06-12] MEDS ORDERED: ONDANSETRON INJ 2 MG/ML 2 ML VIAL IV PRN (07:35)
[2023-06-12] MEDS ORDERED: DIPHTHERIA/TETANUS/PERTUSSIS Vaccine (Tdap, Age 7+yrs) 0.5mL SYR/VL IM ONE (07:35)
[2023-06-12] MEDS ORDERED: SENNA 8.6 MG TAB PO PRN (07:35)
--- NOTE | 2023-06-12 07:41 | Operative Report ---
PG Post Operative Report Pre & Post Diagnosis Operation Date: 06/12/23 04:15 Pre-Op Diagnosis: 1.IUP at 38 weeks 2.Previous c/section X 2 3. Labor 4. Breech Presentation Post-Op Diagnosis: same I identified the patient and participated in the time-out.: Yes Procedure Operation Date: 06/12/23 04:15 Actual Procedures p Section in LD with the of a live female child at 0630. - Mable Ricardo MD, FACOG Surgeon Mable Ricardo MD, FACOG [employer] Anali Rudolph MD Estimated Blood Loss 450 Findings Consistent with Post-Op Diagnosis Specimens placenta to hold Drains Burt to straight Anesthesia Type Spinal Complications none Disposition Accompanied Patient To Recovery: Yes Indications Patient is a 28-year-old 3 para 2-0-0-2 female EDC of 06/25/2023 who presents with regular contractions at 38 weeks. The infant is known to be in the breech presentation and she has had 2 prior sections and is planning a third section. Her cervix was dilated to 3 cm and contractions were consistent every 3 to 4 minutes. Because of the breech presentation and regular contractions with cervical dilation we will proceed with repeat section at this time. Description of Procedure After the patient received adequate subarachnoid block she was prepped and draped in usual sterile fashion. Low transverse skin incision was made with a scalpel through her prior scar to the level of the fascia. The fascial incision was extended with Gunderson scissors. The edges were then grasped with Adriana clamps and the underlying rectus muscles bluntly sharply dissected off of the overlying fascia. Rectus muscle were bluntly divided along the midline. The bladder was then taken down off of the lower uterine segment with Metzenbaum scissors and placed behind the bladder blade. The lower uterine segment was noted to be very thin. Scalpel was used to enter the lower uterine segment and the incision was extended transversely. The was delivered from the alicia breech presentation with moderate fundal pressure to deliver the head. Infant was vigorous and moving all 4 limbs immediately after . The cord was clamped and cut and the infant was handed off to Dr. Escobar who was in attendance as mutuel machine operator. After cord blood was obtained the placenta was manually removed. Some retained membranes were also removed with ring forceps. The uterine cavity was then explored found be free of any other retained tissue or membranes. Dilute Pitocin and fundal massage was used to control uterine bleeding. The uterus was then closed in 2 layers in a running locking imbricating fashion with 0 Monocryl. Some bleeding along the incision site was secured with the Bovie. The posterior cul-de-sac was examined and there was only a small amount of blood and fluid present. This was reviewed removed with a moist sponge. The uterine incision was examined once more and continue to have excellent hemostasis. The uterus was placed back inside the abdominal cavity the gutters were checked for any clot or fluid. The incision was examined once more and continue to have adequate hemostasis. The rectus muscle were brought together on the midline with individual stitches of 0 Monocryl. The fascia was closed in a running fash ion with 0 Vicryl. Danika's fascia was then closed in running fashion with 2-0 plain catgut. After irrigating the adipose layer the skin edges were closed in a subcuticular fashion with 4-0 Vicryl. Urine was clear at the end of the case plan and were doing well after delivery. I attest to the content of the Intraoperative Record and any orders documented therein. Any exceptions are noted below. OB Procedure Charges 25496
[2023-06-12] MEDS: diphenhydrAMINE 50 MG/ML VIAL IV PRN ×2 (07:53→20:23)
[2023-06-12] MEDS ORDERED: MONTELUKAST SODIUM 10 MG TABLET PO SCH (09:00)
[2023-06-12] MEDS: OXYTOCIN 20 UNITS in LACTATED RINGER'S 1,000 ML IV SCH ×2 (09:50→17:48)
[2023-06-12] MEDS: SIMETHICONE 80 MG CHEW PO SCH ×4 (10:38→20:21)
[2023-06-12] MEDS: DOCUSATE SODIUM 100 MG CAP PO SCH ×2 (10:38→20:21)
[2023-06-12] MEDS: FERROUS SULFATE 325 MG TAB PO SCH (10:38)
[2023-06-12] MEDS: PRENATAL VITAMIN 1 TAB PO SCH (10:38)
[2023-06-12] MEDS: KETOROLAC 30 MG/ML VIAL IV PRN ×2 (12:08→20:23)
[2023-06-12] MEDS: ONDANSETRON INJ 2 MG/ML 2 ML VIAL IV PRN ×2 (12:08→18:44)
[2023-06-12] MEDS: MONTELUKAST SODIUM 10 MG TABLET PO SCH (20:21)
[2023-06-13] MEDS ORDERED: diphenhydrAMINE 50 MG/ML VIAL IV PRN (00:15)
[2023-06-13] MEDS ORDERED: PROMETHAZINE HCL 25 MG in SODIUM CHLORIDE 0.9% 50 ML IV PRN (00:15)
[2023-06-13] MEDS ORDERED: diphenhydrAMINE Capsule 25 MG CAP PO PRN (00:15)
[2023-06-13] MEDS: oxyCODONE/ACETAMINOPHEN 5mg/325mg TAB PO PRN ×5 (05:56→23:14)
[2023-06-13] MEDS: IBUPROFEN 600 MG TAB PO PRN ×5 (05:57→23:14)
--- NOTE | 2023-06-13 06:00 | Obstetrical Progress Note ---
Date of Service June 13, 2023 Assessment & Plan (1) Encounter for care and examination after delivery: Plan: 28 yo [id number] day 1 s/p Vital Signs reviewed and WNL. - Hemoglobin Reviewed 15.0-> 13.3 (today) - Blood Type: A+, GBS-, Rubella Immune. - Pt is doing well clinically. - Encourage Ambulation, - Monitor and Control pain with Motrin PRN, Resume regular diet, Monitor Lochia Encourage Breast Feeding. Admission and Anticipated Discharge Date Admission Date: June 12, 2023 Supervising Physician Co-Signing Physician Notes Patient seen and evaluated and agree with the above findings and plan. Routine OB care. Subjective 28 yo [id number] day 1 s/p Ambulation: ambulating normally Voiding: no voiding problems Passing Gas:: Yes Diet Tolerance:: regular diet Lochia:: Small Feeding Type: Bottle feeding Current Pain Level: 6/10, controlled with pain meds Resting comfortably this AM in NAD. Denies CRAIN, CP, SOB, N/V/D, LE pain/swelling. Review of Systems Review of Systems: All systems reviewed & are unremarkable except as noted in HPI & below Physical Exam Physical Exam: General: patient resting comfortably, NAD, non-toxic in appearance, AA&O x 4, answers questions appropriately. Skin: warm, dry, intact HEENT: NC/AT, anicteric sclera, conjunctiva without injection, moist mucus membranes. Heart: +S1/S2, regular, no m/r/g Lungs: equal air entry bilaterally, no rales/rhonchi/wheezes Abd: +BS, soft, NT/ND, uterine fundus firm at umbilicus, caesarean incision C/D/I. Ext: warm, no clubbing/cyanosis or edema, Maribell's neg. Neuro: nonfocal, patient AA&O x 4, speech intact, no facial droop, moving all extremities on command. Results & Data Vital Signs (Past 12 Hours) Vital Signs Temp Pulse Resp BP Pulse Ox O2 Del Method 06/13/23 03:15 36.7 C 78 18 118/72 Room Air 06/12/23 23:35 18 95 06/12/23 23:35 36.7 C 85 18 115/73 95 Room Air 06/12/23 23:00 18 95 06/12/23 22:00 18 98 06/12/23 21:00 18 95 06/12/23 20:00 18 94 06/12/23 19:10 18 96 06/12/23 19:10 Room Air 06/12/23 19:10 36.7 C 85 18 126/79 96 Room Air 06/12/23 18:48 16 97 06/12/23 18:00 16 97 Resident Activity Tracking Resident Involvement: Resident Care Provided Care Provided: OB Delivery
[2023-06-13 06:29] LABS: Basophils # (auto) 0.03 K/uL (0.00-0.20); Basophils % (auto) 0.3 %; Eosinophils # (auto) 0.16 K/uL (0.00-0.50); Eosinophils % (auto) 1.8 %; Hematocrit (blood only) 37.5 % (37.0-47.0); Hemoglobin 13.3 g/dl (12.0-16.0); Immature Granulocytes # (auto) 0.02 K/uL (0.01-0.20); Immature Granulocytes % (auto) 0.2 %; Lymphocytes # (auto) 1.75 K/uL (1.20-3.40); Lymphocytes % (auto) 19.3 %; Mean Corpuscular Hemoglobin 32.3 pg (25.0-34.0); Mean Corpuscular Hgb Conc 35.5 g/dL (32.0-36.0); Mean Platelet Volume 9.5 fL (9.4-12.4); Monocytes # (auto) 0.69 K/uL (0.11-0.59); Monocytes % (auto) 7.6 %; Neutrophils # (auto) 6.44 K/uL (1.40-6.50); Neutrophils % (auto) 70.8 %; Platelet Count 144 K/uL (130-400); RDW Coefficient of Variation 12.7 % (11.5-14.5); RDW Standard Deviation 41.8 fL (36.4-46.3); Red Blood Count 4.12 M/uL (4.20-5.40); White Blood Count 9.09 K/ul (4.8-10.8)
[2023-06-13] MEDS: PRENATAL VITAMIN 1 TAB PO SCH (08:25)
[2023-06-13] MEDS: FERROUS SULFATE 325 MG TAB PO SCH (08:26)
[2023-06-13] MEDS: DOCUSATE SODIUM 100 MG CAP PO SCH ×2 (08:26→20:04)
[2023-06-13] MEDS: SIMETHICONE 80 MG CHEW PO SCH ×4 (08:28→20:04)
[2023-06-13] MEDS ORDERED: bisacodyL 5 MG TABEC PO SCH (20:00)
[2023-06-13] MEDS: MONTELUKAST SODIUM 10 MG TABLET PO SCH (20:04)
[2023-06-14] MEDS: oxyCODONE/ACETAMINOPHEN 5mg/325mg TAB PO PRN ×2 (05:13→11:31)
[2023-06-14] MEDS: IBUPROFEN 600 MG TAB PO PRN ×2 (05:14→11:32)
--- NOTE | 2023-06-14 05:55 | Obstetrical Progress Note ---
Date of Service June 14, 2023 Assessment & Plan (1) Encounter for care and examination after delivery: Plan: 28 yo post day 2 s/p Vital Signs reviewed and WNL. - Hemoglobin Reviewed 15.0-> 12.7 (today) - Blood Type: A+, GBS-, Rubella Immune. - Pt is doing well clinically. - Encourage Ambulation, - Monitor and Control pain with Motrin PRN, Resume regular diet, Monitor Lochia Encourage Breast Feeding - Pt counselled on discharge instructions Admission and Anticipated Discharge Date Admission Date: June 12, 2023 Supervising Physician Co-Signing Physician Notes Resident Physician Supervision Note: I was present with Dr. Garcia during the history and exam. I discussed the case with the resident and agree with the findings and plan as documented in the note. Any exceptions or clarifications are listed here: pt doing well, eating, voiding, ambulating. good pain control. breast feeding. rhpos, ri, abd soft ff 2 down incision c/d/i with bruising. ext nt calves, trace pedal edema. pod #2 s/p c/s, instructions reviewed. f/u 6wk pp check. stable for dc home, hgb reviewed. Documented By: Lula Diane MD, FACOG Subjective 28 yo [id number] day 2 s/p Ambulation: ambulating normally Voiding: no voiding problems Passing Gas:: Yes Diet Tolerance:: regular diet Lochia:: Small Feeding Type: Bottle feeding Current Pain Level: 4/10, controlled with pain meds Resting comfortably this AM in NAD. Denies CRAIN, CP, SOB, N/V/D, LE pain/swelling. Review of Systems Review of Systems: All systems reviewed & are unremarkable except as noted in HPI & below Physical Exam Physical Exam: General: patient resting comfortably, NAD, non-toxic in appearance, AA&O x 4, answers questions appropriately. Skin: warm, dry, intact HEENT: NC/AT, anicteric sclera, conjunctiva without injection, moist mucus membranes. Heart: +S1/S2, regular, no m/r/g Lungs: equal air entry bilaterally, no rales/rhonchi/wheezes Abd: +BS, soft, NT/ND, uterine fundus firm at umbilicus, caesarean incision C/D/I. Ext: warm, no clubbing/cyanosis or edema, Maribell's neg. Neuro: nonfocal, patient AA&O x 4, speech intact, no facial droop, moving all extremities on command. Results & Data Vital Signs (Past 12 Hours) Vital Signs Temp Pulse Resp BP Pulse Ox O2 Del Method 06/13/23 23:15 36.5 C 77 18 119/75 97 Room Air 06/13/23 19:45 Room Air 06/13/23 19:45 36.5 C 79 18 123/80 98 Room Air Resident Activity Tracking Resident Involvement: Resident Care Provided Care Provided: OB Delivery
[2023-06-14 06:20] LABS: Hematocrit (blood only) 36.6 % (37.0-47.0); Hemoglobin 12.7 g/dl (12.0-16.0)
[2023-06-14] MEDS ORDERED: bisacodyL 10 MG SUPP PR PRN (06:59)
[2023-06-14] MEDS: FERROUS SULFATE 325 MG TAB PO SCH (07:50)
[2023-06-14] MEDS: SIMETHICONE 80 MG CHEW PO SCH (07:50)
[2023-06-14] MEDS: DOCUSATE SODIUM 100 MG CAP PO SCH (07:50)
[2023-06-14] MEDS: PRENATAL VITAMIN 1 TAB PO SCH (07:51)
--- NOTE | 2023-06-16 00:21 | Discharge Summary ---
Date of Service June 16, 2023 Admission HPI Per Admitting Provider Patient is a 28 yo female EDC06/25/23 who presents with regular contractions every 4-8 minutes over the last several hours. no SPROM. GBS - negative. complicated by breech presentation and prior section X 2. Admission Exam (Per Admitting) Constitutional WD/WN, vitals as above Respiratory normal respiratory effort, lungs clear to auscultation Cardiovascular RRR, no murmur, no edema Psychiatric A+Ox3, euthymic affect Genitourinary OB Exam Abdomen: + breech and + regular contractions (3-4 minutes) Manual OB Exam: + cervical dilation + 2 cm (2-3 cm), + cervical effacement + 80% and + station + high (-3) OB Exam Monitor Tracing: + external FHT monitor used, + external uterine monitor used, + category I and + normal FHT variability Discharge Data Consultations 06/12/23 03:33 Consult Anesthesiology Stat Procedures Performed Operation Date: 06/12/23 04:15 Actual Procedures p Section in LD with the of a live female child at 0630. - Mable Ricardo MD, FACOG Discharge Plan Discharge Items Patient Disposition: Home - Self-Care Reason For Visit: SECTION Discharge Diagnosis: after delivery Activity: Per Instructions section Non-emergency contact: Tactical Debriefer Call non-emergency contact if: you have any medication questions, your pain is not controlled and you have a fever Follow-up/Referrals: PCP,NO [Primary Care Provider] - Diet: Regular Addtl Attending Provider Instructions: ACTIVITY RECOMMENDATIONS: * Gradual return to full activity over the next 2-3 weeks. * No lifting - nothing heavier than baby over the next 2-3 weeks. * Do not engage in vigorous exercise, sexual activity or sports until cleared by your physician. * Do not drive or operate any motorized equipment until cleared by your physician. * You may shower/bathe daily. MEDICATIONS: For discomfort or pain, you may use Acetaminophen (Tylenol), Ibuprofen (Advil), or Naproxen (Aleve) following the package directions. For constipation you may use Colace following the package directions. BREAST CARE: If you are not breast feeding: * Wear a supportive bra 24 hours a day for one to two weeks. * Avoid stimulating your breasts and nipples as much as possible during the first few weeks after delivery. * When taking a shower, have the warm water hit your back, not breasts. * When your breasts feel full, apply ice packs. Usually three to four times a day helps ease the discomfort. * Take a mild pain medication (Tylenol / Motrin) when you are uncomfortable. If breast feeding: * Use breast milk to lubricate nipples. Lansinoh cream may be used for sore nipples. You do not need to remove cream prior to breast feeding. If using a different brand of cream, check the label for directions regarding removal of cream prior to nursing. * Wear a supportive bra. * If having problems with breasts or breast feeding, call a retirement sales consultant or your health care provider. SPECIAL CARE INSTRUCTIONS: When you are discharged from the hospital, it is important for you to follow the instructions listed below: * During the first week at home, you should be able to care for yourself and your baby. In addition, the usual light household activities are encouraged. * Limit your activities to the way you feel. Do not try to clean the house or move furniture. Be sensible. * If you actively engage in sports and have done so up until the time of your delivery, you may resume these activities as soon as you feel able. This may take up to one month or even longer. Use good judgment. * Continue to take your vitamins for at least six weeks after the of your baby. * Your diet need not be limited unless you were on a special diet before your delivery. Breast-feeding mothers need around 2500 calories per day and at least 64-80 ounces of fluid per day (8 to 10 glasses). * You should eat foods from the four major food groups. Crash diets or fad diets are to be avoided. Eating lean meats, fresh fruits and vegetables, low-fat dairy products, high fiber foods and a regular exercise program, will help you get back to your pre- weight without putting your health at risk. * Constipation is sometimes a problem after delivery. Take a mild laxative as needed. If breast feeding, Milk of Magnesia is acceptable to use. You may use a suppository or Fleets enema. * A daily shower or tub bath is suggested. Wash incision daily with warm soapy water and pat dry. It doesn't need to be covered unless drainage is present. * A bloody vaginal discharge will usually continue until around four weeks . A small amount of bleeding may continue for as long as six weeks. Vaginal discharge changes from the bright red bleeding after delivery to pink then brownish and finally yellowish-pink before becoming white and disappearing. * Bleeding may increase with activity. Your first period may come in 4-8 weeks. If you are breast feeding, your period may be delayed even longer. * Sublette (sex) can begin whenever both you and your partner feel comfortable and do not have any form of genital infection. It is recommended that you wait at least six weeks for internal and external healing to occur. If you have questions, please talk to your health care practitioner. A condom should be used to prevent infection and . * Foreplay, gentle intercourse and lubrication is very important the first several times to prevent pain. A water-based lubricant such as K-Y jelly or Astroglide may be used. * If you have RH negative blood and your baby is RH positive, you will receive RHOGAM by injection prior to discharge. The nurse will give you a card to keep with you that has the date and place that you received RHOGAM after delivery. * During your care, you had a Rubella screen done to check for the presence of rubella antibodies in your blood. If your test was negative, you will receive a Rubella vaccine prior to discharge. This vaccine may cause a fever, soreness at the injection site and flu-like symptoms. If these symptoms persist, notify your health care practitioner. is not advised for one month after a Rubella vaccine. * Verbalizes understanding of car seat law as reviewed with patient nursing. * Car Seat hand-out given and reviewed with patient by nursing. * Shaken baby information reviewed with patient by nursing. Call you doctor if: * Heavy bleeding (saturating several pads an hour) or passing clots the size of your fist. * A fever >101 degrees F (38.3 degrees C) on two occasions four hours apart and/or chills. * Unusual pain in the pelvic or vaginal areas. * Call the doctor for any increased redness, drainage or swelling around the incision and any pain unrelieved by prescribed pain medication. * "Baby Blues" lasting longer than two weeks. If you have any questions or concerns, call your health care practitioner at . FOLLOW UP VISIT: * Please call the office at to schedule a 6 week examination. It is important you keep this appointment. It is important for you to make arrangements for either yearly or twice yearly check-ups thereafter. Pending Studies at Discharge: No Stand-Alone Forms: My [facility], Smoking Cessation Medications and DC Order Prescriptions: New oxycodone-acetaminophen [Percocet] 5-325 mg Tablet 1 tab PO Q4H PRN (Reason: pain) Qty: 12 0RF Continued montelukast [Singulair] 10 mg tablet 10 mg PO DAILY prenat.vits,brenna,[id number] PO DAILY clindamycin phosphate 1 % lotion 1 applic topical DAILY Qty: 60 4RF Rx Instructions: Apply to the face once daily after washing. ascorbic acid-collagen PO Zyrtec 10 mg Capsule 10 mg PO DAILY Discharge Orders: Discharge Order (Routine); Ordered 06/14/23 Ordered By: Robinson Chaudhari/Other Patient Handouts: Depression, DVT in Admission Data Admit Date/Time: 06/12/23 03:33 Attending Provider: Mable Ricardo Admit Provider: Mable Ricardo Primary Care Provider: PCP,NO Other Providers: Robinson Mays ; Sid Disla ; Lula Diane Other Interventions: Discharge Summary Assessment (RN) Last Done: 06/14/23 13:15 Coding Level of Care Code 35196 IN/OBS DISCH 30 MIN/LESS Diagnoses
== END 2023-06-14 13:15 | disposition home or self-care (01) | DRG 787 ==
LOC: OPB 02:36 → 4S1 02:38 → 4E2 10:20